=== PATIENT | male | born 1950 | race Two or more races ===

== ENCOUNTER 2016-11-23 23:15 | Inpatient (IN) | payer MEDICARE ==
[2016-11-23 23:43] VITALS: BP 133/74
[2016-11-24] MEDS: INSULIN ASPART SLIDING SCALE 100 UNITS/ML UNIT SUBQ SCH ×4 (06:30→20:38)
[2016-11-24] MEDS ORDERED: Non-Formulary Item 1 EA (Fluoxetine Hcl [Prozac] 40 MG) PO SCH (09:00)
[2016-11-24] MEDS ORDERED: Non-Formulary Item 1 EA (Apixaban [Eliquis] 5 MG) PO SCH (09:00)
[2016-11-24] MEDS: Docusate Sodium/Senna Tab PO SCH ×2 (09:23→18:00)
--- NOTE | 2016-11-24 20:02 | History and Physical ---
History of Present Illness - HPI Chief Complaint: Mental health disorder HPI: 66 yrs old male with underlying HTN admitted to [facility] for evaluation of underlying psych disorder by DR LANDON. I was consulted to evaluated patient's medical status. During my evaluation patient denied any complaints. I reviewed patient's transfer records for [facility] where patient was diagnosed with PE and started on anticoagulation. Leg doppler per records was negative CT ABD/ PELVIS was negative as well. Patient denied any prior personal or family history of blood clots Vital Signs: Last Vital Signs Temp 97.5 F 11/23/16 23:49 Pulse 73 11/24/16 14:11 Resp 19 11/24/16 14:11 BP 133/74 11/23/16 23:49 Pulse Ox 94 11/23/16 23:49 Past Medical History Cardiovascular: Report: HTN Pulmonary: Report: No Pertinent Hx ACCOUNTING PROFESSIONAL: Report: No Pertinent Hx Psych: Report: No Pertinent Hx, Other (Mental health disorder) Musculoskeletal: Report: No Pertinent Hx Rheumatologic: Report: No pertinent Hx Infectious Disease: Report: No Pertinent Hx Renal/: Report: No Pertinent Hx Endocrine: Report: No Pertinent Hx Family Medical History - Family Member Mother History Unknown: Yes Ethnicity: Unknown Living Status: Unknown Social History Smoke: No Alcohol: None Drugs: None Lives: With Family, Other - Medications Home Medications: Home Medication Medication Instructions Recorded Type Acetaminophen [Non-Aspirin Pain 650 mg PO Q8HR PRN 11/23/16 History Relief] Apixaban [Eliquis] 5 mg PO BID 11/23/16 History Docusate Sodium/Senna [Senna Plus 1 tab PO BID 11/23/16 History 50 mg-8.6 mg] Fluoxetine HCl [Prozac] 40 mg PO DAILY 11/23/16 History Insulin Aspart Sliding Scale See Protocol SUBQ ACHS 11/23/16 History [NovoLOG INSULIN SLIDING SCALE] Mirtazapine [Remeron] 15 mg PO HS 11/23/16 History OLANZapine [ZyPREXA] 5 mg PO HS 11/23/16 History - Allergies Allergies/Adverse Reactions: Allergies Allergy/AdvReac Type Severity Reaction Status Date / Time No Known Allergies Allergy Verified 11/23/16 23:43 Review of Systems - Review of Systems Constitutional: Report: No Significant. Denies: Fever, Chills Eyes: Denies: Vision Change ENT: Denies: Throat Pain Respiratory: Denies: Cough, Shortness of Breath Cardiovascular: Denies: Chest Pain, Palpitations Gastrointestinal: Denies: Nausea, Vomiting, Abdominal Pain, Constipation Genitourinary: Denies: Dysuria Musculoskeletal: Denies: Back Pain Skin: Denies: Rash Neurological: Denies: No Significant Physical Exam - Physical Exam Cardiovascular Systems: Report: Regular, Rate and Rhythm Respiratory: Report: Breath Sounds are within normal limits Abdomen: Report: Non-tender to palpation Back: Report: Inspection of back is within normal limits. Extremities: Report: Non-tender to palpation., No pedal edema was noted on inspection Skin: Report: Warm Neuro/Psych: Report: No new focal deficits - Lab Results All Lab Results last 24 hours: Laboratory Last Values POC Glucose 94 MG/DL (70 - 105) 11/24/16 16:39 Laboratory Results - last 24 hr 11/23/16 11/24/16 11/24/16 23:53 06:07 11:27 POC Glucose 118 H 91 97 11/24/16 16:39 POC Glucose 94 - Assessment Assessment: Pulmonary embolism HTN Mental health disorder - Plan Plan: Continue anticoagulation Hematology consult Monitor BP ( no HTN meds) Psych managment per Psychiatrist Plan of care discussed with nursing staff
[2016-11-24 22:31] LABS: % BASOPHILS 2.1 % (0.0-2.0); % EOSINOPHILS 1.2 % (0.0-5.0); % LYMPHOCYTES 28.3 % (20.0-50.0); % MONOCYTES 7.5 % (2.0-10.0); % NEUTROPHILS 60.9 % (40.0-80.0); HEMATOCRIT 46.4 % (39.0-49.0); HEMOGLOBIN 15.5 gm/dL (12.6-17.4); MEAN CELL VOLUME 90.8 fl (80-99); MEAN CORPUSCULAR HEMOGLOBIN 30.3 pg (27.0-31.0); MEAN CORPUSCULAR HGB CONC 33.4 pg (28.0-36.0); MEAN PLATELET VOLUME 7.9 fl; NEUTROPHILE ABSOLUTE 6.1 Th/cmm (1.8-8.0); PLATELET COUNT 287 Th/cmm (150-400); RED CELL DISTRIBUTION WIDTH 13.8 % (11.5-20.0); WHITE BLOOD COUNT 10.1 Th/cmm (4.8-10.8)
[2016-11-24 22:46] LABS: ANION GAP 9.1 (7.0-16.0); BUN - UREA NITROGEN 22 mg/dL (7-25); BUN/CREATININE RATIO 24.4; CALCIUM SERUM 9.5 mg/dL (8.6-10.3); CARBON DIOXIDE 23.4 mEq/L (21.0-31.0); CHLORIDE 102 mEq/L (98-107); CREATININE - SERUM 0.9 mg/dL (0.7-1.3); GLUCOSE 100 mg/dL (70-105); POTASSIUM SERUM 4.5 mEq/L (3.5-5.1); SODIUM SERUM 130 mEq/L (136-145)
[2016-11-25] MEDS: INSULIN ASPART SLIDING SCALE 100 UNITS/ML UNIT SUBQ SCH ×4 (06:45→21:18)
[2016-11-25] MEDS: Docusate Sodium/Senna Tab PO SCH ×2 (08:54→16:55)
--- NOTE | 2016-11-25 09:14 | Psych Progress Note ---
Anu Psych Progress Note - Intro Date of Progress Note: 11/25/16 - Assessment Assessment: Depressed. - Vitals, I&O Vitals: Vital Signs - 24 hr 11/24/16 11/24/16 11/25/16 14:11 20:00 05:20 Temp 98.5 F 98.5 F HR 86 85 HR [Radial] 73 RR 19 18 18 BP 110/53 98/63 O2 Sat % 95 93 I&O: Intake & Output 11/23/16 11/24/16 11/25/16 11/26/16 06:59 06:59 06:59 06:59 Weight (lbs) 85.275 kg - ROS Psychological ROS: Report: Anxiety, Behavioral Disorder, Depression, Sleep Disturbances, Suicidal Ideation Neurological: Report: Behavorial changes, Weakness - Objective Psych Behavior: Report: Alert, Cooperative Psych Speech: Report: Increased Latency of Resp, Soft Psych Mood: Report: Anxious, Depressed, Sad Psych Affect: Report: Anxious, Constricted, Depressed, Inappropriate Psych Thought Process: Report: [place] Psych Cognition: Report: Grossly Intact Psych Insight: Report: Impaired Psych Judgement: Report: Impaired - Plan Plan: Continue current meds and follow up with supportive tx. - Review of Relevant Data Review of Relevant Data: I have reviewed the following items and time gaston (where applicable) has been applied. Psych Data Reviewed: Meds (Able to tolerate meds.) - Medications Current Medications: Current Medications Acetaminophen (Tylenol) 650 mg PO Q8HR PRN PRN Reason: mild pain Stop: 01/23/17 00:13 Insulin Aspart (Novolog Insulin Sliding Scale) 0 units SUBQ ACHS JULISSA PRN Reason: Protocol Stop: 01/23/17 07:29 Last Admin: 11/25/16 06:45 Dose: Not Given Lorazepam (Ativan) 1 mg PO Q6H PRN; Protocol PRN Reason: Agitation Stop: 01/22/17 23:44 Last Admin: 11/24/16 16:49 Dose: 1 mg Mirtazapine (Remeron) 15 mg PO HS JULISSA PRN Reason: Protocol Stop: 01/23/17 20:59 Last Admin: 11/24/16 20:37 Dose: 15 mg Olanzapine (Zyprexa) 5 mg PO HS JULISSA PRN Reason: Protocol Stop: 01/23/17 20:59 Last Admin: 11/24/16 20:37 Dose: 5 mg Rivaroxaban (Xarelto) 20 mg PO QDPC [facility] Stop: 01/24/17 08:29 Last Admin: 11/25/16 08:54 Dose: 20 mg Sennosides (Senna Plus 50 Mg-8.6 Mg) 1 tab PO BID [facility] Stop: 01/23/17 08:59 Last Admin: 11/25/16 08:54 Dose: 1 tab Zolpidem Tartrate (Ambien) 5 mg PO HS PRN PRN Reason: Insomnia Stop: 01/22/17 23:44 Last Admin: 11/24/16 01:18 Dose: 5 mg
--- NOTE | 2016-11-25 12:18 | Consultation ---
Consult Note - Consult Note Service Date: 11/25/16 Referring Physician: Avinash Jamison Consult Note: PHYSICIAN Consultation Note: Date of Admission: 11/23/16 Purpose of Consultation: Pulmonary Embolism Chief Complaint: depression History of Present Illness: Patient TOLU LÓPEZ was admitted to [facility] with PSYCHOSIS. Past Medical History: Depression, HTN, PE Allergies Allergy/AdvReac Type Severity Reaction Status Date / Time No Known Allergies Allergy Verified 11/23/16 23:43 Vital Signs Temp 98.5 F 11/25/16 05:20 Pulse 85 11/25/16 05:20 Resp 18 11/25/16 05:20 BP 98/63 11/25/16 05:20 Pulse Ox 93 11/25/16 05:20 Laboratory Results - last 24 hr 11/24/16 11/24/16 11/24/16 16:39 20:01 22:24 WBC 10.1 RBC 5.10 Hgb 15.5 Hct 46.4 MCV 90.8 MCH 30.3 MCHC Differential 33.4 RDW 13.8 Plt Count 287 MPV 7.9 Neutrophils % 60.9 Lymphocytes % 28.3 Monocytes % 7.5 Eosinophils % 1.2 Basophils % 2.1 H Sodium Potassium Chloride Carbon Dioxide Anion Gap BUN Creatinine Est GFR ( Amer) Est GFR (Non-Af Amer) BUN/Creatinine Ratio Glucose POC Glucose 94 105 Calcium 11/24/16 11/25/16 22:24 05:59 WBC RBC Hgb Hct MCV MCH MCHC Differential RDW Plt Count MPV Neutrophils % Lymphocytes % Monocytes % Eosinophils % Basophils % Sodium 130 L Potassium 4.5 Chloride 102 Carbon Dioxide 23.4 Anion Gap 9.1 BUN 22 Creatinine 0.9 Est GFR ( Amer) > 60.0 Est GFR (Non-Af Amer) > 60.0 BUN/Creatinine Ratio 24.4 Glucose 100 POC Glucose 91 Calcium 9.5 Home Medication Medication Instructions Recorded Type Acetaminophen [Non-Aspirin Pain 650 mg PO Q8HR PRN 11/23/16 History Relief] Apixaban [Eliquis] 5 mg PO BID 11/23/16 History Docusate Sodium/Senna [Senna Plus 1 tab PO BID 11/23/16 History 50 mg-8.6 mg] Fluoxetine HCl [Prozac] 40 mg PO DAILY 11/23/16 History Insulin Aspart Sliding Scale See Protocol SUBQ ACHS 11/23/16 History [NovoLOG INSULIN SLIDING SCALE] Mirtazapine [Remeron] 15 mg PO HS 11/23/16 History OLANZapine [ZyPREXA] 5 mg PO HS 11/23/16 History Current Medications Generic Name Dose Route Start Last Admin Trade Name Freq PRN Reason Stop Dose Admin Acetaminophen 650 mg 11/24/16 00:14 Tylenol PO 01/23/17 00:13 Q8HR PRN mild pain Insulin Aspart 0 units 11/24/16 07:30 11/25/16 06:45 Novolog Insulin Sliding Scale SUBQ 01/23/17 07:29 Not Given ACHS JULISSA Protocol Lorazepam 1 mg 11/24/16 09:20 11/24/16 16:49 Ativan PO 01/22/17 23:44 1 mg Q6H PRN Administration Agitation Protocol Mirtazapine 15 mg 11/24/16 21:00 11/24/16 20:37 Remeron PO 01/23/17 20:59 15 mg HS JULISSA Administration Protocol Olanzapine 5 mg 11/24/16 21:00 11/24/16 20:37 Zyprexa PO 01/23/17 20:59 5 mg HS JULISSA Administration Protocol Rivaroxaban 20 mg 11/25/16 08:30 11/25/16 08:54 Xarelto PO 01/24/17 08:29 20 mg QDPC JULISSA Administration Sennosides 1 tab 11/24/16 09:00 11/25/16 08:54 Senna Plus 50 Mg-8.6 Mg PO 01/23/17 08:59 1 tab BID JULISSA Administration Zolpidem Tartrate 5 mg 11/23/16 23:45 11/24/16 01:18 Ambien PO 01/22/17 23:44 5 mg HS PRN Administration Insomnia Review of Systems: A 12 point ROS was reviewed with the pertinent positive and negatives noted in the HPI. Social History Smoking Status Never smoker Drug Use No Alcohol Use No Family Medical History Family Medical History Start: 11/23/16 23: 38 Freq: ONCE Status: Active Document 11/23/16 23:38 MILAGRO (Rec: 11/24/16 00:23 MILAGRO [id number]) Family Medical History Mother History Unknown Yes Ethnicity Unknown Living Status Unknown Physical Exam: General: Alert and Oriented x3, No Acute Distress HEENT: EOMI Bilaterally, PERRLA Bilaterally, Head is normocephalic, atraumatic on inspection. Cardio: +S1/S2 Auscultated, RRR, no murmurs/rubs/gallops noted Respiratory: Clear to Auscultate Bilaterally Abdominal: Soft, Nondistended, Nontender to palpation x 4 quadrants Genital/Urinary: Extremities: No Edema noted in the lower extremities Neurological: Cranial Nerves II-XII intact bilaterally, Gait Steady, No Focal Deficits noted. Assessment/Plan: * Pulmonary Embolism right lower lobe * HTN * Psychosis check D-dimer will eval for hypercoagulable state after 6 months Continue Xarelto x months Signed, Misael Varela [id number]
[2016-11-26] MEDS: INSULIN ASPART SLIDING SCALE 100 UNITS/ML UNIT SUBQ SCH ×4 (06:32→21:13)
[2016-11-26] MEDS: Docusate Sodium/Senna Tab PO SCH ×2 (09:57→16:10)
--- NOTE | 2016-11-26 10:58 | Psych Progress Note ---
Anu Psych Progress Note - Intro Date of Progress Note: 11/26/16 - Assessment Assessment: Depressed. - Vitals, I&O Vitals: Vital Signs - 24 hr 11/25/16 11/25/16 11/26/16 14:53 20:00 06:33 Temp 100.2 F 97.2 F HR 84 72 HR [Radial] 84 RR 20 20 20 BP 132/72 130/84 O2 Sat % 93 96 I&O: Intake & Output 11/24/16 11/25/16 11/26/16 11/27/16 06:59 06:59 06:59 06:59 Intake Total 1919 Balance 1919 Weight (lbs) 85.275 kg - ROS Psychological ROS: Report: Anxiety, Depression, Irritability, Memory difficulties, Sleep Disturbances, Suicidal Ideation Neurological: Report: Confusion, Gait Disturbance - Objective Psych General Appearance: Report: Roughly stated age, Disheveled Psych Behavior: Report: Alert, Cooperative Psych Speech: Report: Soft Psych Mood: Report: Anxious, Depressed Psych Affect: Report: Anxious, Constricted, Depressed Psych Thought Process: Report: Circumstantial Psych Cognition: Report: Memory generally intact Psych Insight: Report: Impaired Psych Judgement: Report: Impaired - Plan Plan: Continue current meds and follow up with supportive tx. - Review of Relevant Data Review of Relevant Data: I have reviewed the following items and time gaston (where applicable) has been applied. Psych Data Reviewed: Meds - Diagnosis Diagnosis: Herrera. depressive disorder rec severe. - Medications Current Medications: Current Medications Acetaminophen (Tylenol) 650 mg PO Q8HR PRN PRN Reason: mild pain Stop: 01/23/17 00:13 Insulin Aspart (Novolog Insulin Sliding Scale) 0 units SUBQ ACHS JULISSA PRN Reason: Protocol Stop: 01/23/17 07:29 Last Admin: 11/26/16 06:32 Dose: Not Given Lorazepam (Ativan) 1 mg PO Q6H PRN; Protocol PRN Reason: Agitation Stop: 01/22/17 23:44 Last Admin: 11/24/16 16:49 Dose: 1 mg Mirtazapine (Remeron) 15 mg PO HS JULISSA PRN Reason: Protocol Stop: 01/23/17 20:59 Last Admin: 11/25/16 21:18 Dose: 15 mg Olanzapine (Zyprexa) 5 mg PO HS JULISSA PRN Reason: Protocol Stop: 01/23/17 20:59 Last Admin: 11/25/16 21:18 Dose: 5 mg Rivaroxaban (Xarelto) 20 mg PO QDPC JULISSA Stop: 01/24/17 08:29 Last Admin: 11/26/16 09:57 Dose: Not Given Sennosides (Senna Plus 50 Mg-8.6 Mg) 1 tab PO BID JULISSA Stop: 01/23/17 08:59 Last Admin: 11/26/16 09:57 Dose: Not Given Zolpidem Tartrate (Ambien) 5 mg PO HS PRN PRN Reason: Insomnia Stop: 01/22/17 23:44 Last Admin: 11/25/16 23:41 Dose: 5 mg
--- NOTE | 2016-11-26 13:50 | General Progress Note ---
Subjective - Review of Systems Service Date: 11/26/16 Events since last encounter: none Objective - Results Result Diagrams: 11/24/16 22:24 11/24/16 22:24 Recent Labs: Laboratory Last Values WBC 10.1 Th/cmm (4.8-10.8) 11/24/16 22:24 RBC 5.10 Mil/cmm (3.80-5.80) 11/24/16 22:24 Hgb 15.5 gm/dL (12.6-17.4) 11/24/16 22:24 Hct 46.4 % (39.0-49.0) 11/24/16 22:24 MCV 90.8 fl (80-99) 11/24/16 22:24 MCH 30.3 pg (27.0-31.0) 11/24/16 22:24 MCHC Differential 33.4 pg (28.0-36.0) 11/24/16 22:24 RDW 13.8 % (11.5-20.0) 11/24/16 22:24 Plt Count 287 Th/cmm (150-400) 11/24/16 22:24 MPV 7.9 fl 11/24/16 22:24 Neutrophils % 60.9 % (40.0-80.0) 11/24/16 22:24 Lymphocytes % 28.3 % (20.0-50.0) 11/24/16 22:24 Monocytes % 7.5 % (2.0-10.0) 11/24/16 22:24 Eosinophils % 1.2 % (0.0-5.0) 11/24/16 22:24 Basophils % 2.1 % (0.0-2.0) H 11/24/16 22:24 Sodium 130 mEq/L (136-145) L 11/24/16 22:24 Potassium 4.5 mEq/L (3.5-5.1) 11/24/16 22:24 Chloride 102 mEq/L (98-107) 11/24/16 22:24 Carbon Dioxide 23.4 mEq/L (21.0-31.0) 11/24/16 22:24 Anion Gap 9.1 (7.0-16.0) 11/24/16 22:24 BUN 22 mg/dL (7-25) 11/24/16 22:24 Creatinine 0.9 mg/dL (0.7-1.3) 11/24/16 22:24 Est GFR ( Amer) > 60.0 ml/min (>90) 11/24/16 22:24 Est GFR (Non-Af Amer) > 60.0 ml/min 11/24/16 22:24 BUN/Creatinine Ratio 24.4 11/24/16 22:24 Glucose 100 mg/dL (70-105) 11/24/16 22:24 POC Glucose 101 MG/DL (70 - 105) 11/26/16 06:01 Calcium 9.5 mg/dL (8.6-10.3) 11/24/16 22:24 - Physical Exam Vitals and I&O: Vital Signs Temp 97.2 F 11/26/16 06:33 Pulse 72 11/26/16 06:33 Resp 20 11/26/16 06:33 BP 130/84 11/26/16 06:33 Pulse Ox 96 11/26/16 06:33 Intake & Output 11/25/16 11/26/16 11/26/16 18:59 06:59 18:59 Intake Total 1800 120 Balance 1800 120 Intake: Oral 1800 120 Other: # Voids 4 3 # Bowel Movements 1 Active Medications: Current Medications Acetaminophen (Tylenol) 650 mg PO Q8HR PRN PRN Reason: mild pain Stop: 01/23/17 00:13 Aripiprazole (Abilify) 2 mg PO DAILY [facility] PRN Reason: Protocol Stop: 01/26/17 08:59 Insulin Aspart (Novolog Insulin Sliding Scale) 0 units SUBQ ACHS [facility] PRN Reason: Protocol Stop: 01/23/17 07:29 Last Admin: 11/26/16 12:12 Dose: Not Given Lorazepam (Ativan) 1 mg PO Q6H PRN; Protocol PRN Reason: Agitation Stop: 01/22/17 23:44 Last Admin: 11/24/16 16:49 Dose: 1 mg Mirtazapine (Remeron) 15 mg PO [facility] PRN Reason: Protocol Stop: 01/23/17 20:59 Last Admin: 11/25/16 21:18 Dose: 15 mg [facility]: 01/24/17 08:29 Last Admin: 11/26/16 09:57 Dose: Not Given Sennosides (Senna Plus 50 Mg-8.6 Mg) 1 tab PO BID JULISSA Stop: 01/23/17 08:59 Last Admin: 11/26/16 09:57 Dose: Not Given Zolpidem Tartrate (Ambien) 5 mg PO HS PRN PRN Reason: Insomnia Stop: 01/22/17 23:44 Last Admin: 11/25/16 23:41 Dose: 5 mg Assessment/Plan - Assessment Assessment: * Pulmonary embolism * Depression Continue xarelto
[2016-11-27] MEDS: INSULIN ASPART SLIDING SCALE 100 UNITS/ML UNIT SUBQ SCH ×4 (06:31→20:41)
[2016-11-27] MEDS: Docusate Sodium/Senna Tab PO SCH ×2 (08:55→16:41)
--- NOTE | 2016-11-27 10:53 | Psych Progress Note ---
Anu Psych Progress Note - Intro Date of Progress Note: 11/27/16 - Assessment Assessment: Depressed. - Vitals, I&O Vitals: Vital Signs - 24 hr 11/26/16 11/26/16 11/27/16 14:00 15:03 06:35 Temp 98.4 F 97.8 F HR 77 71 HR [Radial] 72 RR 20 20 20 BP 115/66 124/78 O2 Sat % 96 98 I&O: Intake & Output 11/25/16 11/26/16 11/27/16 11/28/16 06:59 06:59 06:59 06:59 Intake Total 0 1720 Balance 1920 1720 - ROS Psychological ROS: Report: Anxiety, Depression, Sleep Disturbances, Suicidal Ideation Neurological: Report: No Significant - Objective Psych General Appearance: Report: No acute distress Psych Behavior: Report: Alert, Calm Psych Speech: Report: Normal in Rate and amount Psych Mood: Report: Anxious, Depressed, Irritable Psych Affect: Report: [place] content of speech, Anxious, Depressed Psych Thought Process: Report: Circumstantial Psych Cognition: Report: Confused, Unchanged from previous exam Psych Insight: Report: Impaired Psych Judgement: Report: Impaired - Plan Plan: Continue Abilify and add Prozac and follow up with supportive tx. - Review of Relevant Data Review of Relevant Data: I have reviewed the following items and time gaston (where applicable) has been applied. Psych Data Reviewed: Meds - Diagnosis Diagnosis: Herrera. depep. disorder. - Medications Current Medications: Current Medications Acetaminophen (Tylenol) 650 mg PO Q8HR PRN PRN Reason: mild pain Stop: 01/23/17 00:13 Aripiprazole (Abilify) 2 mg PO DAILY JULISSA PRN Reason: Protocol Stop: 01/26/17 08:59 Fluoxetine HCl (Prozac) 20 mg PO DAILY JULISSA PRN Reason: Protocol Stop: 01/27/17 08:59 Insulin Aspart (Novolog Insulin Sliding Scale) 0 units SUBQ ACHS JULISSA PRN Reason: Protocol Stop: 01/23/17 07:29 Last Admin: 11/27/16 06:31 Dose: Not Given Lorazepam (Ativan) 1 mg PO Q6H PRN; Protocol PRN Reason: Agitation Stop: 01/22/17 23:44 Last Admin: 11/26/16 21:12 Dose: 1 mg Mirtazapine (Remeron) 15 mg PO HS JULISSA PRN Reason: Protocol Stop: 01/23/17 20:59 Last Admin: 11/26/16 21:12 Dose: 15 mg Rivaroxaban (Xarelto) 20 mg PO QDPC JULISSA Stop: 01/24/17 08:29 Last Admin: 11/27/16 08:55 Dose: 20 mg Sennosides (Senna Plus 50 Mg-8.6 Mg) 1 tab PO BID JULISSA Stop: 01/23/17 08:59 Last Admin: 11/27/16 08:55 Dose: 1 tab Zolpidem Tartrate (Ambien) 5 mg PO HS PRN PRN Reason: Insomnia Stop: 01/22/17 23:44 Last Admin: 11/25/16 23:41 Dose: 5 mg
--- NOTE | 2016-11-27 12:16 | General Progress Note ---
Subjective - Review of Systems Service Date: 11/27/16 Subjective: more awake and responsive. Seems less depressed. No reports of bleeding Objective - Results Result Diagrams: 11/24/16 22:24 11/24/16 22:24 Recent Labs: Laboratory Last Values WBC 10.1 Th/cmm (4.8-10.8) 11/24/16 22:24 RBC 5.10 Mil/cmm (3.80-5.80) 11/24/16 22:24 Hgb 15.5 gm/dL (12.6-17.4) 11/24/16 22:24 Hct 46.4 % (39.0-49.0) 11/24/16 22:24 MCV 90.8 fl (80-99) 11/24/16 22:24 MCH 30.3 pg (27.0-31.0) 11/24/16 22:24 MCHC Differential 33.4 pg (28.0-36.0) 11/24/16 22:24 RDW 13.8 % (11.5-20.0) 11/24/16 22:24 Plt Count 287 Th/cmm (150-400) 11/24/16 22:24 MPV 7.9 fl 11/24/16 22:24 Neutrophils % 60.9 % (40.0-80.0) 11/24/16 22:24 Lymphocytes % 28.3 % (20.0-50.0) 11/24/16 22:24 Monocytes % 7.5 % (2.0-10.0) 11/24/16 22:24 Eosinophils % 1.2 % (0.0-5.0) 11/24/16 22:24 Basophils % 2.1 % (0.0-2.0) H 11/24/16 22:24 D-Dimer < 100 ng/mL (100-400) L 11/26/16 14:37 Sodium 130 mEq/L (136-145) L 11/24/16 22:24 Potassium 4.5 mEq/L (3.5-5.1) 11/24/16 22:24 Chloride 102 mEq/L (98-107) 11/24/16 22:24 Carbon Dioxide 23.4 mEq/L (21.0-31.0) 11/24/16 22:24 Anion Gap 9.1 (7.0-16.0) 11/24/16 22:24 BUN 22 mg/dL (7-25) 11/24/16 22:24 Creatinine 0.9 mg/dL (0.7-1.3) 11/24/16 22:24 Est GFR ( Amer) > 60.0 ml/min (>90) 11/24/16 22:24 Est GFR (Non-Af Amer) > 60.0 ml/min 11/24/16 22:24 BUN/Creatinine Ratio 24.4 11/24/16 22:24 Glucose 100 mg/dL (70-105) 11/24/16 22:24 POC Glucose 94 MG/DL (70 - 105) 11/27/16 12:03 Calcium 9.5 mg/dL (8.6-10.3) 11/24/16 22:24 - Physical Exam Vitals and I&O: Vital Signs Temp 97.8 F 11/27/16 06:35 Pulse 71 11/27/16 06:35 Resp 20 11/27/16 06:35 BP 124/78 11/27/16 06:35 Pulse Ox 98 11/27/16 06:35 Intake & Output 11/26/16 11/27/16 11/27/16 18:59 06:59 18:59 Intake Total 1600 120 Balance 1600 120 Intake: Oral 1600 120 Other: # Voids 4 3 # Bowel Movements 0 Active Medications: Current Medications Acetaminophen (Tylenol) 650 mg PO Q8HR PRN PRN Reason: mild pain Stop: 01/23/17 00:13 Aripiprazole (Abilify) 2 mg PO DAILY [facility] PRN Reason: Protocol Stop: 01/26/17 08:59 Fluoxetine HCl (Prozac) 20 mg PO DAILY J[facility]SA PRN Reason: Protocol Stop: 01/27/17 08:59 Insulin Aspart (Novolog Insulin Sliding Scale) 0 units SUBQ ACHS JULISSA PRN Reason: Protocol Stop: 01/23/17 07:29 Last Admin: 11/27/16 12:07 Dose: Not Given Lorazepam (Ativan) 1 mg PO Q6H PRN; Protocol PRN Reason: Agitation Stop: 01/22/17 23:44 Last Admin: 11/26/16 21:12 Dose: 1 mg Mirtazapine (Remeron) 15 mg PO HS JULISSA PRN Reason: Protocol Stop: 01/23/17 20:59 Last Admin: 11/26/16 21:12 Dose: 15 mg Rivaroxaban (Xarelto) 20 mg PO QDPC JULISSA Stop: 01/24/17 08:29 Last Admin: 11/27/16 08:55 Dose: 20 mg Sennosides (Senna Plus 50 Mg-8.6 Mg) 1 tab PO BID JULISSA Stop: 01/23/17 08:59 Last Admin: 11/27/16 08:55 Dose: 1 tab Zolpidem Tartrate (Ambien) 5 mg PO HS PRN PRN Reason: Insomnia Stop: 01/22/17 23:44 Last Admin: 11/25/16 23:41 Dose: 5 mg Assessment/Plan - Assessment Assessment: * Pulmonary embolism * Depression Continue xarelto same dose
--- NOTE | 2016-11-27 21:16 | General Progress Note ---
Subjective - Review of Systems Service Date: 11/27/16 Subjective: Patient seen and examined denied any complaints Objective - Results Result Diagrams: 11/24/16 22:24 11/24/16 22:24 Recent Labs: Laboratory Last Values WBC 10.1 Th/cmm (4.8-10.8) 11/24/16 22:24 RBC 5.10 Mil/cmm (3.80-5.80) 11/24/16 22:24 Hgb 15.5 gm/dL (12.6-17.4) 11/24/16 22:24 Hct 46.4 % (39.0-49.0) 11/24/16 22:24 MCV 90.8 fl (80-99) 11/24/16 22:24 MCH 30.3 pg (27.0-31.0) 11/24/16 22:24 MCHC Differential 33.4 pg (28.0-36.0) 11/24/16 22:24 RDW 13.8 % (11.5-20.0) 11/24/16 22:24 Plt Count 287 Th/cmm (150-400) 11/24/16 22:24 MPV 7.9 fl 11/24/16 22:24 Neutrophils % 60.9 % (40.0-80.0) 11/24/16 22:24 Lymphocytes % 28.3 % (20.0-50.0) 11/24/16 22:24 Monocytes % 7.5 % (2.0-10.0) 11/24/16 22:24 Eosinophils % 1.2 % (0.0-5.0) 11/24/16 22:24 Basophils % 2.1 % (0.0-2.0) H 11/24/16 22:24 D-Dimer < 100 ng/mL (100-400) L 11/26/16 14:37 Sodium 130 mEq/L (136-145) L 11/24/16 22:24 Potassium 4.5 mEq/L (3.5-5.1) 11/24/16 22:24 Chloride 102 mEq/L (98-107) 11/24/16 22:24 Carbon Dioxide 23.4 mEq/L (21.0-31.0) 11/24/16 22:24 Anion Gap 9.1 (7.0-16.0) 11/24/16 22:24 BUN 22 mg/dL (7-25) 11/24/16 22:24 Creatinine 0.9 mg/dL (0.7-1.3) 11/24/16 22:24 Est GFR ( Amer) > 60.0 ml/min (>90) 11/24/16 22:24 Est GFR (Non-Af Amer) > 60.0 ml/min 11/24/16 22:24 BUN/Creatinine Ratio 24.4 11/24/16 22:24 Glucose 100 mg/dL (70-105) 11/24/16 22:24 POC Glucose 106 MG/DL (70 - 105) H 11/27/16 20:17 Calcium 9.5 mg/dL (8.6-10.3) 11/24/16 22:24 - Physical Exam Vitals and I&O: Vital Signs Temp 98.1 F 11/27/16 19:53 Pulse 85 11/27/16 19:53 Resp 20 11/27/16 19:53 BP 119/80 11/27/16 19:53 Pulse Ox 92 11/27/16 19:53 Intake & Output 11/27/16 11/27/16 11/28/16 06:59 18:59 06:59 Intake Total 120 960 120 Balance 120 960 120 Intake: Oral 120 960 120 Other: # Voids 3 4 2 # Bowel Movements 0 0 Active Medications: Current Medications Acetaminophen (Tylenol) 650 mg PO Q8HR PRN PRN Reason: mild pain Stop: 01/23/17 00:13 Aripiprazole (Abilify) 2 mg PO DAILY JULISSA PRN Reason: Protocol Stop: 01/26/17 08:59 Fluoxetine HCl (Prozac) 20 mg PO DAILY JULISSA PRN Reason: Protocol Stop: 01/27/17 08:59 Insulin Aspart (Novolog Insulin Sliding Scale) 0 units SUBQ ACHS JULISSA PRN Reason: Protocol Stop: 01/23/17 07:29 Last Admin: 11/27/16 20:41 Dose: Not Given Lorazepam (Ativan) 1 mg PO Q6H PRN; Protocol PRN Reason: Agitation Stop: 01/22/17 23:44 Last Admin: 11/26/16 21:12 Dose: 1 mg Mirtazapine (Remeron) 15 mg PO HS JULISSA PRN Reason: Protocol Stop: 01/23/17 20:59 Last Admin: 11/27/16 20:41 Dose: 15 mg Rivaroxaban (Xarelto) 20 mg PO QDPC [facility] Stop: 01/24/17 08:29 Last Admin: 11/27/16 08:55 Dose: 20 mg Sennosides (Senna Plus 50 Mg-8.6 Mg) 1 tab PO BID JULISSA Stop: 01/23/17 08:59 Last Admin: 11/27/16 16:41 Dose: Not Given Zolpidem Tartrate (Ambien) 5 mg PO HS PRN PRN Reason: Insomnia Stop: 01/22/17 23:44 Last Admin: 11/25/16 23:41 Dose: 5 mg Cardiovascular: Regular rate Lungs: Clear to auscultation Assessment/Plan - Assessment Assessment: Pulmonary embolism HTN Mental health disorder - Plan Plan: Continue anticoagulation Monitor BP ( no HTN meds) Psych managment per Psychiatrist Plan of care discussed with nursing staff
[2016-11-28] MEDS: INSULIN ASPART SLIDING SCALE 100 UNITS/ML UNIT SUBQ SCH ×4 (06:47→21:15)
[2016-11-28] MEDS: Docusate Sodium/Senna Tab PO SCH ×2 (08:49→18:25)
--- NOTE | 2016-11-28 12:20 | Psych Progress Note ---
[facility] Psych Progress Note - Intro Date of Progress Note: 11/28/16 - Assessment Assessment: Depressed. - Vitals, I&O Vitals: Vital Signs - 24 hr 11/27/16 11/27/16 11/27/16 12:57 14:00 19:53 Temp 97.6 F 98.1 F HR 83 85 HR [Radial] 71 RR 20 19 20 BP 119/71 119/80 O2 Sat % 98 92 11/28/16 05:43 Temp 98.4 F HR 72 HR [Radial] RR 20 BP 112/73 O2 Sat % 96 I&O: Intake & Output 11/26/16 11/27/16 11/28/16 11/29/16 06:59 06:59 06:59 06:59 Intake Total 1920 1720 1200 Balance 1920 1720 1200 Weight (lbs) 87.861 kg - ROS Psychological ROS: Report: Anxiety, Depression, Sleep Disturbances, Suicidal Ideation Neurological: Report: No Significant - Objective Psych General Appearance: Report: No acute distress Psych Behavior: Report: Alert, Calm Psych Speech: Report: Normal in Rate and amount Psych Mood: Report: Anxious, Depressed, Irritable Psych Affect: Report: Approp. content of speech, Anxious, Depressed Psych Thought Process: Report: Circumstantial Psych Cognition: Report: Confused, Unchanged from previous exam Psych Insight: Report: Impaired Psych Judgement: Report: Impaired - Plan Plan: Continue Abilify and add Prozac and follow up with supportive tx. - Review of Relevant Data Review of Relevant Data: I have reviewed the following items and time gaston (where applicable) has been applied. Psych Data Reviewed: Meds - Diagnosis Diagnosis: callieJoseph dep renny with psy sx. - Medications Current Medications: Current Medications Acetaminophen (Tylenol) 650 mg PO Q8HR PRN PRN Reason: mild pain Stop: 01/23/17 00:13 Aripiprazole (Abilify) 2 mg PO DAILY JULISSA PRN Reason: Protocol Stop: 01/26/17 08:59 Last Admin: 11/28/16 08:51 Dose: 2 mg Fluoxetine HCl (Prozac) 20 mg PO DAILY JULISSA PRN Reason: Protocol Stop: 01/27/17 08:59 Last Admin: 11/28/16 08:50 Dose: 20 mg Insulin Aspart (Novolog Insulin Sliding Scale) 0 units SUBQ ACHS JULISSA PRN Reason: Protocol Stop: 01/23/17 07:29 Last Admin: 11/28/16 06:47 Dose: Not Given Lorazepam (Ativan) 1 mg PO Q6H PRN; Protocol PRN Reason: Agitation Stop: 01/22/17 23:44 Last Admin: 11/26/16 21:12 Dose: 1 mg Mirtazapine (Remeron) 15 mg PO HS JULISSA PRN Reason: Protocol Stop: 01/23/17 20:59 Last Admin: 11/27/16 20:41 Dose: 15 mg Rivaroxaban (Xarelto) 20 mg PO QDPC JULISSA Stop: 01/24/17 08:29 Last Admin: 11/28/16 08:49 Dose: 20 mg Sennosides (Senna Plus 50 Mg-8.6 Mg) 1 tab PO BID JULISSA Stop: 01/23/17 08:59 Last Admin: 11/28/16 08:49 Dose: 1 tab Zolpidem Tartrate (Ambien) 5 mg PO HS PRN PRN Reason: Insomnia Stop: 01/22/17 23:44 Last Admin: 11/27/16 23:23 Dose: 5 mg
--- NOTE | 2016-11-28 12:45 | General Progress Note ---
Subjective - Review of Systems Service Date: 11/28/16 Subjective: more awake and responsive.. No reports of bleeding Objective - Results Result Diagrams: 11/24/16 22:24 11/24/16 22:24 Recent Labs: Laboratory Last Values WBC 10.1 Th/cmm (4.8-10.8) 11/24/16 22:24 RBC 5.10 Mil/cmm (3.80-5.80) 11/24/16 22:24 Hgb 15.5 gm/dL (12.6-17.4) 11/24/16 22:24 Hct 46.4 % (39.0-49.0) 11/24/16 22:24 MCV 90.8 fl (80-99) 11/24/16 22:24 MCH 30.3 pg (27.0-31.0) 11/24/16 22:24 MCHC Differential 33.4 pg (28.0-36.0) 11/24/16 22:24 RDW 13.8 % (11.5-20.0) 11/24/16 22:24 Plt Count 287 Th/cmm (150-400) 11/24/16 22:24 MPV 7.9 fl 11/24/16 22:24 Neutrophils % 60.9 % (40.0-80.0) 11/24/16 22:24 Lymphocytes % 28.3 % (20.0-50.0) 11/24/16 22:24 Monocytes % 7.5 % (2.0-10.0) 11/24/16 22:24 Eosinophils % 1.2 % (0.0-5.0) 11/24/16 22:24 Basophils % 2.1 % (0.0-2.0) H 11/24/16 22:24 D-Dimer < 100 ng/mL (100-400) L 11/26/16 14:37 Sodium 130 mEq/L (136-145) L 11/24/16 22:24 Potassium 4.5 mEq/L (3.5-5.1) 11/24/16 22:24 Chloride 102 mEq/L (98-107) 11/24/16 22:24 Carbon Dioxide 23.4 mEq/L (21.0-31.0) 11/24/16 22:24 Anion Gap 9.1 (7.0-16.0) 11/24/16 22:24 BUN 22 mg/dL (7-25) 11/24/16 22:24 Creatinine 0.9 mg/dL (0.7-1.3) 11/24/16 22:24 Est GFR ( Amer) > 60.0 ml/min (>90) 11/24/16 22:24 Est GFR (Non-Af Amer) > 60.0 ml/min 11/24/16 22:24 BUN/Creatinine Ratio 24.4 11/24/16 22:24 Glucose 100 mg/dL (70-105) 11/24/16 22:24 POC Glucose 97 MG/DL (70 - 105) 11/28/16 06:23 Calcium 9.5 mg/dL (8.6-10.3) 11/24/16 22:24 - Physical Exam Vitals and I&O: Vital Signs Temp 98.4 F 11/28/16 05:43 Pulse 72 11/28/16 05:43 Resp 20 11/28/16 05:43 BP 112/73 11/28/16 05:43 Pulse Ox 96 11/28/16 05:43 Intake & Output 11/27/16 11/28/16 11/28/16 18:59 06:59 18:59 Intake Total 960 240 Balance 960 240 Weight (lbs) 87.861 kg Intake: Oral 960 240 Other: # Voids 4 1 # Bowel Movements 0 0 Active Medications: Current Medications Acetaminophen (Tylenol) 650 mg PO Q8HR PRN PRN Reason: mild pain Stop: 01/23/17 00:13 Aripiprazole (Abilify) 2 mg PO DAILY JULISSA PRN Reason: Protocol Stop: 01/26/17 08:59 Last Admin: 11/28/16 08:51 Dose: 2 mg Fluoxetine HCl (Prozac) 20 mg PO DAILY JULISSA PRN Reason: Protocol Stop: 01/27/17 08:59 Last Admin: 11/28/16 08:50 Dose: 20 mg Insulin Aspart (Novolog Insulin Sliding Scale) 0 units SUBQ ACHS JULISSA PRN Reason: Protocol Stop: 01/23/17 07:29 Last Admin: 11/28/16 06:47 Dose: Not Given Lorazepam (Ativan) 1 mg PO Q6H PRN; Protocol PRN Reason: Agitation Stop: 01/22/17 23:44 Last Admin: 11/26/16 21:12 Dose: 1 mg Mirtazapine (Remeron) 15 mg PO HS JULISSA PRN Reason: Protocol Stop: 01/23/17 20:59 Last Admin: 11/27/16 20:41 Dose: 15 mg Rivaroxaban (Xarelto) 20 mg PO QDPC JULISSA Stop: 01/24/17 08:29 Last Admin: 11/28/16 08:49 Dose: 20 mg Sennosides (Senna Plus 50 Mg-8.6 Mg) 1 tab PO BID JULISSA Stop: 01/23/17 08:59 Last Admin: 11/28/16 08:49 Dose: 1 tab Zolpidem Tartrate (Ambien) 5 mg PO HS PRN PRN Reason: Insomnia Stop: 01/22/17 23:44 Last Admin: 11/27/16 23:23 Dose: 5 mg Cardiovascular: Regular rate Lungs: Clear to auscultation Assessment/Plan - Assessment Assessment: * Pulmonary embolism * Depression Continue xarelto same dose Nutritional Asmnt/Malnutr-PDOC - Dietary Evaluation Malnutrition Findings (Please click <Entered> for more info): Nutritional Asmnt/Malnutrition Start: 11/28/16 09: 29 Text: Status: Complete Freq: Document 11/28/16 09:29 GSAMY (Rec: 11/28/16 09:48 [email or web address]) Nutritional Asmnt/Malnutrition Patient General Information Nutritional Screening Moderate Risk Screening Diagnosis Pulmonary embolism, HTN, mental health disorder Pertinent Medical Hx/Surgical Hx HTN, mental health disorder Subjective Information 66 year old male. Pt was resting in bed, appeared guarded, asked RD to leave after several questions, limited interview due to this. Pt denied allergies, chewing/ swallowing difficulties, any nutritional questions at this time. No wasting noted. Avg PO intake 75-100% since adm, meeting nutritional needs. Current Diet Order/ Nutrition Support Regular, Boost BID Pertinent Medications Novolog, Remeron, Senna Plus Pertinent Labs Reviewed. POC glucose 86-118 since adm Nutritional Hx/Data Height 1.73 m Height (Calculated Centimeters) 172.7 Current Weight (lbs) 87.861 kg Weight (Calculated Kilograms) 87.9 Weight (Calculated Grams) 79197.8 [place] Body Weight 154 Weight Status Overweight GI Symptoms Skin Integrity/Comment: Mukul Glez. Skin intact. Current %PO Good (75-100%) Estimated Nutritional Goals Calories/Kcals/Kg IBW 154lb/70kg Kcals Calculated 1750-2100kcal (25-30kcal/kg) Protein Calculated 70g (1g/kg) Fluid: ml 1750-2100ml (1ml/kcal) Nutritional Problem 1. Problem Problem No nutritional problem at this time. Intervention/Recommendation Comments 1. Continue with current diet order. Avg PO intake is adequate. 2. Remove Boost BID, pt with good appetite, meeting nutritional needs on meals. Expected Outcomes/Goals Expected Outcomes/Goals 1. PO intake continue to meet at least 75% of estimated nutritional needs.
[2016-11-29] MEDS: INSULIN ASPART SLIDING SCALE 100 UNITS/ML UNIT SUBQ SCH ×4 (06:37→21:15)
[2016-11-29] MEDS: Docusate Sodium/Senna Tab PO SCH ×2 (08:11→16:45)
--- NOTE | 2016-11-29 09:38 | Psych Progress Note ---
[facility] Psych Progress Note - Intro Date of Progress Note: 11/29/16 - Assessment Assessment: Depressed. - Vitals, I&O Vitals: Vital Signs - 24 hr 11/28/16 11/28/16 11/29/16 14:00 21:11 07:08 Temp 98.3 F 97.6 F 98.6 F HR 65 73 71 RR 18 19 97 BP 104/52 114/70 135/71 O2 Sat % 96 98 18 I&O: Intake & Output 11/27/16 11/28/16 11/29/16 11/30/16 06:59 06:59 06:59 06:59 Intake Total 1720 1200 1200 Balance 1720 1200 1200 Weight (lbs) 87.861 kg - ROS Psychological ROS: Report: Anxiety, Depression, Sleep Disturbances, Suicidal Ideation Neurological: Report: No Significant, Confusion, Dizziness - Objective Psych General Appearance: Report: Disheveled Psych Behavior: Report: Alert, Calm, Agitated Psych Speech: Report: Normal in Rate and amount Psych Mood: Report: Anxious, Depressed, Irritable Psych Affect: Report: Approp. content of speech, Anxious, Depressed Psych Thought Process: Report: Circumstantial Psych Cognition: Report: Confused, Unchanged from previous exam Psych Insight: Report: Impaired Psych Judgement: Report: Impaired - Plan Plan: Continue Abilify and add Prozac and follow up with supportive tx.patient is awaiting placement. - Review of Relevant Data Review of Relevant Data: I have reviewed the following items and time gaston (where applicable) has been applied. Psych Data Reviewed: Meds - Medications Current Medications: Current Medications Acetaminophen (Tylenol) 650 mg PO Q8HR PRN PRN Reason: mild pain Stop: 01/23/17 00:13 Last Admin: 11/28/16 20:59 Dose: 650 mg Aripiprazole (Abilify) 2 mg PO DAILY JULISSA PRN Reason: Protocol Stop: 01/26/17 08:59 Last Admin: 11/29/16 08:15 Dose: 2 mg Fluoxetine HCl (Prozac) 20 mg PO DAILY JULISSA PRN Reason: Protocol Stop: 01/27/17 08:59 Last Admin: 11/29/16 08:14 Dose: 20 mg Insulin Aspart (Novolog Insulin Sliding Scale) 0 units SUBQ ACHS JULISSA PRN Reason: Protocol Stop: 01/23/17 07:29 Last Admin: 11/29/16 06:37 Dose: Not Given Lorazepam (Ativan) 1 mg PO Q6H PRN; Protocol PRN Reason: Agitation Stop: 01/22/17 23:44 Last Admin: 11/28/16 21:00 Dose: 1 mg Mirtazapine (Remeron) 15 mg PO HS JULISSA PRN Reason: Protocol Stop: 01/23/17 20:59 Last Admin: 11/28/16 20:59 Dose: 15 mg Rivaroxaban (Xarelto) 20 mg PO QDPC [facility] Stop: 01/24/17 08:29 Last Admin: 11/29/16 08:14 Dose: 20 mg Sennosides (Senna Plus 50 Mg-8.6 Mg) 1 tab PO BID JULISSA Stop: 01/23/17 08:59 Last Admin: 11/29/16 08:11 Dose: 1 tab Zolpidem Tartrate (Ambien) 5 mg PO HS PRN PRN Reason: Insomnia Stop: 01/22/17 23:44 Last Admin: 11/27/16 23:23 Dose: 5 mg
--- NOTE | 2016-11-29 14:38 | General Progress Note ---
Subjective - Review of Systems Service Date: 11/29/16 Subjective: .. No reports of bleeding Objective - Results Result Diagrams: 11/24/16 22:24 11/24/16 22:24 Recent Labs: Laboratory Last Values WBC 10.1 Th/cmm (4.8-10.8) 11/24/16 22:24 RBC 5.10 Mil/cmm (3.80-5.80) 11/24/16 22:24 Hgb 15.5 gm/dL (12.6-17.4) 11/24/16 22:24 Hct 46.4 % (39.0-49.0) 11/24/16 22:24 MCV 90.8 fl (80-99) 11/24/16 22:24 MCH 30.3 pg (27.0-31.0) 11/24/16 22:24 MCHC Differential 33.4 pg (28.0-36.0) 11/24/16 22:24 RDW 13.8 % (11.5-20.0) 11/24/16 22:24 Plt Count 287 Th/cmm (150-400) 11/24/16 22:24 MPV 7.9 fl 11/24/16 22:24 Neutrophils % 60.9 % (40.0-80.0) 11/24/16 22:24 Lymphocytes % 28.3 % (20.0-50.0) 11/24/16 22:24 Monocytes % 7.5 % (2.0-10.0) 11/24/16 22:24 Eosinophils % 1.2 % (0.0-5.0) 11/24/16 22:24 Basophils % 2.1 % (0.0-2.0) H 11/24/16 22:24 D-Dimer < 100 ng/mL (100-400) L 11/26/16 14:37 Sodium 130 mEq/L (136-145) L 11/24/16 22:24 Potassium 4.5 mEq/L (3.5-5.1) 11/24/16 22:24 Chloride 102 mEq/L (98-107) 11/24/16 22:24 Carbon Dioxide 23.4 mEq/L (21.0-31.0) 11/24/16 22:24 Anion Gap 9.1 (7.0-16.0) 11/24/16 22:24 BUN 22 mg/dL (7-25) 11/24/16 22:24 Creatinine 0.9 mg/dL (0.7-1.3) 11/24/16 22:24 Est GFR ( Amer) > 60.0 ml/min (>90) 11/24/16 22:24 Est GFR (Non-Af Amer) > 60.0 ml/min 11/24/16 22:24 BUN/Creatinine Ratio 24.4 11/24/16 22:24 Glucose 100 mg/dL (70-105) 11/24/16 22:24 POC Glucose 85 MG/DL (70 - 105) 11/29/16 06:24 Calcium 9.5 mg/dL (8.6-10.3) 11/24/16 22:24 - Physical Exam Vitals and I&O: Vital Signs Temp 98.6 F 11/29/16 07:08 Pulse 71 11/29/16 07:08 Resp 97 11/29/16 07:08 BP 135/71 11/29/16 07:08 Pulse Ox 18 11/29/16 07:08 Intake & Output 11/28/16 11/29/16 11/29/16 18:59 06:59 18:59 Intake Total 1200 Balance 1200 Weight (lbs) 87.861 kg Intake: Oral 1200 Other: # Voids 3 2 # Bowel Movements 1 Active Medications: Current Medications Acetaminophen (Tylenol) 650 mg PO Q8HR PRN PRN Reason: mild pain Stop: 01/23/17 00:13 Last Admin: 11/28/16 20:59 Dose: 650 mg Aripiprazole (Abilify) 2 mg PO DAILY JULISSA PRN Reason: Protocol Stop: 01/26/17 08:59 Last Admin: 11/29/16 08:15 Dose: 2 mg Fluoxetine HCl (Prozac) 20 mg PO DAILY JULISSA PRN Reason: Protocol Stop: 01/27/17 08:59 Last Admin: 11/29/16 08:14 Dose: 20 mg Insulin Aspart (Novolog Insulin Sliding Scale) 0 units SUBQ ACHS JULISSA PRN Reason: Protocol Stop: 01/23/17 07:29 Last Admin: 11/29/16 12:20 Dose: Not Given Lorazepam (Ativan) 1 mg PO Q6H PRN; Protocol PRN Reason: Agitation Stop: 01/22/17 23:44 Last Admin: 11/28/16 21:00 Dose: 1 mg Mirtazapine (Remeron) 15 mg PO HS JULISSA PRN Reason: Protocol Stop: 01/23/17 20:59 Last Admin: 11/28/16 20:59 Dose: 15 mg Rivaroxaban (Xarelto) 20 mg PO QDPC JULISSA Stop: 01/24/17 08:29 Last Admin: 11/29/16 08:14 Dose: 20 mg Sennosides (Senna Plus 50 Mg-8.6 Mg) 1 tab PO BID JULISSA Stop: 01/23/17 08:59 Last Admin: 11/29/16 08:11 Dose: 1 tab Zolpidem Tartrate (Ambien) 5 mg PO HS PRN PRN Reason: Insomnia Stop: 01/22/17 23:44 Last Admin: 11/27/16 23:23 Dose: 5 mg Cardiovascular: Regular rate Lungs: Clear to auscultation Assessment/Plan - Assessment Assessment: * Pulmonary embolism * Depression Continue xarelto same dose Nutritional Asmnt/Malnutr-PDOC - Dietary Evaluation Malnutrition Findings (Please click <Entered> for more info): Nutritional Asmnt/Malnutrition Start: 11/28/16 09: 29 Text: Status: Complete Freq: Document 11/28/16 09:29 GSAMY (Rec: 11/28/16 09:48 [email or web address]) Nutritional Asmnt/Malnutrition Patient General Information Nutritional Screening Moderate Risk Screening Diagnosis Pulmonary embolism, HTN, mental health disorder Pertinent Medical Hx/Surgical Hx HTN, mental health disorder Subjective Information 66 year old male. Pt was resting in bed, appeared guarded, asked RD to leave after several questions, limited interview due to this. Pt denied allergies, chewing/ swallowing difficulties, any nutritional questions at this time. No wasting noted. Avg PO intake 75-100% since adm, meeting nutritional needs. Current Diet Order/ Nutrition Support Regular, Boost BID Pertinent Medications Novolog, Remeron, Senna Plus Pertinent Labs Reviewed. POC glucose 86-118 since adm Nutritional Hx/Data Height 1.73 m Height (Calculated Centimeters) 172.7 Current Weight (lbs) 87.861 kg Weight (Calculated Kilograms) 87.9 Weight (Calculated Grams) 42971.8 [place] Body Weight 154 Weight Status Overweight GI Symptoms Skin Integrity/Comment: Mukul 20. Skin intact. Current %PO Good (75-100%) Estimated Nutritional Goals Calories/Kcals/Kg IBW 154lb/70kg Kcals Calculated 1750-2100kcal (25-30kcal/kg) Protein Calculated 70g (1g/kg) Fluid: ml 1750-2100ml (1ml/kcal) Nutritional Problem 1. Problem Problem No nutritional problem at this time. Intervention/Recommendation Comments 1. Continue with current diet order. Avg PO intake is adequate. 2. Remove Boost BID, pt with good appetite, meeting nutritional needs on meals. Expected Outcomes/Goals Expected Outcomes/Goals 1. PO intake continue to meet at least 75% of estimated nutritional needs.
[2016-11-30] MEDS: INSULIN ASPART SLIDING SCALE 100 UNITS/ML UNIT SUBQ SCH ×4 (06:30→21:06)
[2016-11-30] MEDS: Docusate Sodium/Senna Tab PO SCH ×2 (09:16→16:45)
--- NOTE | 2016-11-30 12:51 | Psych Progress Note ---
[facility] Psych Progress Note - Intro Date of Progress Note: 11/30/16 - Assessment Assessment: Depressed. and isolative. - Vitals, I&O Vitals: Vital Signs - 24 hr 11/29/16 11/30/16 16:01 07:05 Temp 98.2 F 97.4 F HR 64 59 RR 20 18 BP 145/85 132/80 O2 Sat % 96 97 I&O: Intake & Output 11/28/16 11/29/16 11/30/16 12/01/16 06:59 06:59 06:59 06:59 Intake Total 1200 1200 800 Balance 1200 1200 800 Weight (lbs) 87.861 kg - ROS Psychological ROS: Report: Anxiety, Depression, Sleep Disturbances, Suicidal Ideation Neurological: Report: No Significant, Confusion, Dizziness - Objective Psych General Appearance: Report: No acute distress, Disheveled Psych Behavior: Report: Alert, Calm, Agitated Psych Speech: Report: Normal in Rate and amount, Soft Psych Mood: Report: Anxious, Depressed, Irritable Psych Affect: Report: Approp. content of speech, Anxious, DEPRESSED Psych Thought Process: Report: Paranoid Psych Cognition: Report: Confused, Unchanged from previous exam Psych Insight: Report: Impaired Psych Judgement: Report: Impaired - Plan Plan: Continue Abilify and add Prozac and follow up with supportive tx.patient is awaiting placement. - Review of Relevant Data Review of Relevant Data: I have reviewed the following items and time gaston (where applicable) has been applied. Psych Data Reviewed: Meds - Medications Current Medications: Current Medications Acetaminophen (Tylenol) 650 mg PO Q8HR PRN PRN Reason: mild pain Stop: 01/23/17 00:13 Last Admin: 11/28/16 20:59 Dose: 650 mg Aripiprazole (Abilify) 2 mg PO DAILY JULISSA PRN Reason: Protocol Stop: 01/26/17 08:59 Last Admin: 11/30/16 09:16 Dose: 2 mg Fluoxetine HCl (Prozac) 20 mg PO DAILY JULISSA PRN Reason: Protocol Stop: 01/27/17 08:59 Last Admin: 11/30/16 09:16 Dose: 20 mg Insulin Aspart (Novolog Insulin Sliding Scale) 0 units SUBQ ACHS JULISSA PRN Reason: Protocol Stop: 01/23/17 07:29 Last Admin: 11/30/16 11:41 Dose: Not Given Lorazepam (Ativan) 1 mg PO Q6H PRN; Protocol PRN Reason: Agitation Stop: 01/22/17 23:44 Last Admin: 11/28/16 21:00 Dose: 1 mg Mirtazapine (Remeron) 15 mg PO HS JULISSA PRN Reason: Protocol Stop: 01/23/17 20:59 Last Admin: 11/29/16 20:56 Dose: 15 mg Rivaroxaban (Xarelto) 20 mg PO QDPC JULISSA Stop: 01/24/17 08:29 Last Admin: 11/30/16 09:16 Dose: 20 mg Sennosides (Senna Plus 50 Mg-8.6 Mg) 1 tab PO BID JULISSA Stop: 01/23/17 08:59 Last Admin: 11/30/16 09:16 Dose: 1 tab Zolpidem Tartrate (Ambien) 5 mg PO HS PRN PRN Reason: Insomnia Stop: 01/22/17 23:44 Last Admin: 11/29/16 20:56 Dose: 5 mg
--- NOTE | 2016-11-30 14:49 | General Progress Note ---
Subjective - Review of Systems Service Date: 11/30/16 Subjective: .. No reports of bleeding Objective - Results Result Diagrams: 11/24/16 22:24 11/24/16 22:24 Recent Labs: Laboratory Last Values WBC 10.1 Th/cmm (4.8-10.8) 11/24/16 22:24 RBC 5.10 Mil/cmm (3.80-5.80) 11/24/16 22:24 Hgb 15.5 gm/dL (12.6-17.4) 11/24/16 22:24 Hct 46.4 % (39.0-49.0) 11/24/16 22:24 MCV 90.8 fl (80-99) 11/24/16 22:24 MCH 30.3 pg (27.0-31.0) 11/24/16 22:24 MCHC Differential 33.4 pg (28.0-36.0) 11/24/16 22:24 RDW 13.8 % (11.5-20.0) 11/24/16 22:24 Plt Count 287 Th/cmm (150-400) 11/24/16 22:24 MPV 7.9 fl 11/24/16 22:24 Neutrophils % 60.9 % (40.0-80.0) 11/24/16 22:24 Lymphocytes % 28.3 % (20.0-50.0) 11/24/16 22:24 Monocytes % 7.5 % (2.0-10.0) 11/24/16 22:24 Eosinophils % 1.2 % (0.0-5.0) 11/24/16 22:24 Basophils % 2.1 % (0.0-2.0) H 11/24/16 22:24 D-Dimer < 100 ng/mL (100-400) L 11/26/16 14:37 Sodium 130 mEq/L (136-145) L 11/24/16 22:24 Potassium 4.5 mEq/L (3.5-5.1) 11/24/16 22:24 Chloride 102 mEq/L (98-107) 11/24/16 22:24 Carbon Dioxide 23.4 mEq/L (21.0-31.0) 11/24/16 22:24 Anion Gap 9.1 (7.0-16.0) 11/24/16 22:24 BUN 22 mg/dL (7-25) 11/24/16 22:24 Creatinine 0.9 mg/dL (0.7-1.3) 11/24/16 22:24 Est GFR ( Amer) > 60.0 ml/min (>90) 11/24/16 22:24 Est GFR (Non-Af Amer) > 60.0 ml/min 11/24/16 22:24 BUN/Creatinine Ratio 24.4 11/24/16 22:24 Glucose 100 mg/dL (70-105) 11/24/16 22:24 POC Glucose 87 MG/DL (70 - 105) 11/30/16 11:35 Calcium 9.5 mg/dL (8.6-10.3) 11/24/16 22:24 - Physical Exam Vitals and I&O: Vital Signs Temp 97.4 F 11/30/16 07:05 Pulse 59 11/30/16 07:05 Resp 18 11/30/16 07:05 BP 132/80 11/30/16 07:05 Pulse Ox 97 11/30/16 07:05 Intake & Output 11/29/16 11/30/16 11/30/16 18:59 06:59 18:59 Intake Total 800 Balance 800 Intake: Oral 800 Other: # Voids 4 2 # Bowel Movements 1 Active Medications: Current Medications Acetaminophen (Tylenol) 650 mg PO Q8HR PRN PRN Reason: mild pain Stop: 01/23/17 00:13 Last Admin: 11/28/16 20:59 Dose: 650 mg Aripiprazole (Abilify) 2 mg PO DAILY JULISSA PRN Reason: Protocol Stop: 01/26/17 08:59 Last Admin: 11/30/16 09:16 Dose: 2 mg Fluoxetine HCl (Prozac) 20 mg PO DAILY JULISSA PRN Reason: Protocol Stop: 01/27/17 08:59 Last Admin: 11/30/16 09:16 Dose: 20 mg Insulin Aspart (Novolog Insulin Sliding Scale) 0 units SUBQ ACHS JULISSA PRN Reason: Protocol Stop: 01/23/17 07:29 Last Admin: 11/30/16 11:41 Dose: Not Given Lorazepam (Ativan) 1 mg PO Q6H PRN; Protocol PRN Reason: Agitation Stop: 01/22/17 23:44 Last Admin: 11/28/16 21:00 Dose: 1 mg Mirtazapine (Remeron) 15 mg PO HS JULISSA PRN Reason: Protocol Stop: 01/23/17 20:59 Last Admin: 11/29/16 20:56 Dose: 15 mg Rivaroxaban (Xarelto) 20 mg PO QDPC JULISSA Stop: 01/24/17 08:29 Last Admin: 11/30/16 09:16 Dose: 20 mg Sennosides (Senna Plus 50 Mg-8.6 Mg) 1 tab PO BID JULISSA Stop: 01/23/17 08:59 Last Admin: 11/30/16 09:16 Dose: 1 tab Zolpidem Tartrate (Ambien) 5 mg PO HS PRN PRN Reason: Insomnia Stop: 01/22/17 23:44 Last Admin: 11/29/16 20:56 Dose: 5 mg Cardiovascular: Regular rate Lungs: Clear to auscultation Assessment/Plan - Assessment Assessment: * Pulmonary embolism * Depression Continue xarelto same dose Nutritional Asmnt/Malnutr-PDOC - Dietary Evaluation Malnutrition Findings (Please click <Entered> for more info): Nutritional Asmnt/Malnutrition Start: 11/28/16 09: 29 Text: Status: Complete Freq: Document 11/28/16 09:29 GSAMY (Rec: 11/28/16 09:48 [email or web address]) Nutritional Asmnt/Malnutrition Patient General Information Nutritional Screening Moderate Risk Screening Diagnosis Pulmonary embolism, HTN, mental health disorder Pertinent Medical Hx/Surgical Hx HTN, mental health disorder Subjective Information 66 year old male. Pt was resting in bed, appeared guarded, asked RD to leave after several questions, limited interview due to this. Pt denied allergies, chewing/ swallowing difficulties, any nutritional questions at this time. No wasting noted. Avg PO intake 75-100% since adm, meeting nutritional needs. Current Diet Order/ Nutrition Support Regular, Boost BID Pertinent Medications Novolog, Remeron, Senna Plus Pertinent Labs Reviewed. POC glucose 86-118 since adm Nutritional Hx/Data Height 1.73 m Height (Calculated Centimeters) 172.7 Current Weight (lbs) 87.861 kg Weight (Calculated Kilograms) 87.9 Weight (Calculated Grams) 59907.8 [place] Body Weight 154 Weight Status Overweight GI Symptoms Skin Integrity/Comment: Mukul 20. Skin intact. Current %PO Good (75-100%) Estimated Nutritional Goals Calories/Kcals/Kg IBW 154lb/70kg Kcals Calculated 1750-2100kcal (25-30kcal/kg) Protein Calculated 70g (1g/kg) Fluid: ml 1750-2100ml (1ml/kcal) Nutritional Problem 1. Problem Problem No nutritional problem at this time. Intervention/Recommendation Comments 1. Continue with current diet order. Avg PO intake is adequate. 2. Remove Boost BID, pt with good appetite, meeting nutritional needs on meals. Expected Outcomes/Goals Expected Outcomes/Goals 1. PO intake continue to meet at least 75% of estimated nutritional needs.
[2016-12-01] MEDS: INSULIN ASPART SLIDING SCALE 100 UNITS/ML UNIT SUBQ SCH ×4 (06:42→20:01)
[2016-12-01] MEDS: Docusate Sodium/Senna Tab PO SCH ×2 (08:44→17:12)
--- NOTE | 2016-12-01 10:46 | Psych Progress Note ---
Anu Psych Progress Note - Intro Date of Progress Note: 12/01/16 - Assessment Assessment: Depressed. and isolative. - Vitals, I&O Vitals: Vital Signs - 24 hr 11/30/16 12/01/16 21:10 07:13 Temp 97.6 F 98 F HR 81 72 RR 18 20 BP 128/79 113/73 O2 Sat % 97 97 I&O: Intake & Output 11/29/16 11/30/16 12/01/16 12/02/16 06:59 06:59 06:59 06:59 Intake Total 1200 800 Balance 1200 800 Weight (lbs) 87.861 kg - ROS Psychological ROS: Report: Anxiety, Depression, Sleep Disturbances, Suicidal Ideation Neurological: Report: No Significant, Confusion - Objective Psych General Appearance: Report: No acute distress, Disheveled Psych Behavior: Report: Alert, Calm, Pacing Psych Speech: Report: Normal in Rate and amount, Soft Psych Mood: Report: Anxious, Depressed Psych Affect: Report: Approp. content of speech, Anxious, Constricted Psych Thought Process: Report: Paranoid Psych Cognition: Report: Confused, Unchanged from previous exam Psych Insight: Report: Impaired Psych Judgement: Report: Impaired - Plan Plan: Continue Abilify and add Prozac and follow up with supportive tx.patient is awaiting placement. - Review of Relevant Data Review of Relevant Data: I have reviewed the following items and time gaston (where applicable) has been applied. Psych Data Reviewed: Meds - Medications Current Medications: Current Medications Acetaminophen (Tylenol) 650 mg PO Q8HR PRN PRN Reason: mild pain Stop: 01/23/17 00:13 Last Admin: 11/28/16 20:59 Dose: 650 mg Aripiprazole (Abilify) 2 mg PO DAILY JULISSA PRN Reason: Protocol Stop: 01/26/17 08:59 Last Admin: 12/01/16 08:44 Dose: 2 mg Fluoxetine HCl (Prozac) 20 mg PO DAILY JULISSA PRN Reason: Protocol Stop: 01/27/17 08:59 Last Admin: 12/01/16 08:44 Dose: 20 mg Insulin Aspart (Novolog Insulin Sliding Scale) 0 units SUBQ ACHS JULISSA PRN Reason: Protocol Stop: 01/23/17 07:29 Last Admin: 12/01/16 06:42 Dose: Not Given Lorazepam (Ativan) 1 mg PO Q6H PRN; Protocol PRN Reason: Agitation Stop: 01/22/17 23:44 Last Admin: 11/28/16 21:00 Dose: 1 mg Mirtazapine (Remeron) 15 mg PO HS JULISSA PRN Reason: Protocol Stop: 01/23/17 20:59 Last Admin: 11/30/16 20:48 Dose: 15 mg Rivaroxaban (Xarelto) 20 mg PO QDPC JULISSA Stop: 01/24/17 08:29 Last Admin: 12/01/16 08:44 Dose: 20 mg Sennosides (Senna Plus 50 Mg-8.6 Mg) 1 tab PO BID JULISSA Stop: 01/23/17 08:59 Last Admin: 12/01/16 08:44 Dose: 1 tab Zolpidem Tartrate (Ambien) 5 mg PO HS PRN PRN Reason: Insomnia Stop: 01/22/17 23:44 Last Admin: 11/30/16 20:48 Dose: 5 mg
[2016-12-02] MEDS: INSULIN ASPART SLIDING SCALE 100 UNITS/ML UNIT SUBQ SCH ×4 (06:29→21:15)
[2016-12-02] MEDS: Docusate Sodium/Senna Tab PO SCH ×2 (08:30→16:46)
--- NOTE | 2016-12-02 09:41 | Psych Progress Note ---
Anu Psych Progress Note - Intro Date of Progress Note: 12/02/16 - Assessment Assessment: Depressed. and isolative. - Vitals, I&O Vitals: Vital Signs - 24 hr 12/01/16 12/01/16 12/01/16 14:00 16:16 20:00 Temp 98.6 F HR 55 HR [Radial] 72 72 RR 20 20 20 BP 112/64 O2 Sat % 96 12/02/16 06:36 Temp 97.8 F HR 67 HR [Radial] RR 20 BP 113/68 O2 Sat % 97 I&O: Intake & Output 11/30/16 12/01/16 12/02/16 12/03/16 06:59 06:59 06:59 06:59 Intake Total 800 1920 Balance 800 1920 - ROS Psychological ROS: Report: Anxiety, Depression, Sleep Disturbances, Suicidal Ideation Neurological: Report: No Significant, Confusion - Objective Psych General Appearance: Report: No acute distress, Disheveled Psych Behavior: Report: Alert, Calm, Pacing Psych Speech: Report: Normal in Rate and amount, Soft Psych Mood: Report: Anxious, Depressed Psych Affect: Report: Approp. content of speech, Anxious, Constricted Psych Thought Process: Report: Paranoid Psych Cognition: Report: Confused, Unchanged from previous exam Psych Insight: Report: Impaired Psych Judgement: Report: Impaired - Plan Plan: Continue Abilify and add Prozac and follow up with supportive tx.patient is awaiting placement. - Review of Relevant Data Review of Relevant Data: I have reviewed the following items and time gaston (where applicable) has been applied. - Medications Current Medications: Current Medications Acetaminophen (Tylenol) 650 mg PO Q8HR PRN PRN Reason: mild pain Stop: 01/23/17 00:13 Last Admin: 11/28/16 20:59 Dose: 650 mg Aripiprazole (Abilify) 2 mg PO DAILY JULISSA PRN Reason: Protocol Stop: 01/26/17 08:59 Last Admin: 12/02/16 08:29 Dose: 2 mg Fluoxetine HCl (Prozac) 20 mg PO DAILY JULISSA PRN Reason: Protocol Stop: 01/27/17 08:59 Last Admin: 12/02/16 08:30 Dose: 20 mg Insulin Aspart (Novolog Insulin Sliding Scale) 0 units SUBQ ACHS JULISSA PRN Reason: Protocol Stop: 01/23/17 07:29 Last Admin: 12/02/16 06:29 Dose: Not Given Lorazepam (Ativan) 1 mg PO Q6H PRN; Protocol PRN Reason: Agitation Stop: 01/22/17 23:44 Last Admin: 12/01/16 21:18 Dose: 1 mg Mirtazapine (Remeron) 15 mg PO HS [facility] PRN Reason: Protocol Stop: 01/23/17 20:59 Last Admin: 12/01/16 20:01 Dose: 15 mg Rivaroxaban (Xarelto) 20 mg PO QDPC [facility] Stop: 01/24/17 08:29 Last Admin: 12/02/16 08:29 Dose: 20 mg Sennosides (Senna Plus 50 Mg-8.6 Mg) 1 tab PO BID [facility] Stop: 01/23/17 08:59 Last Admin: 12/02/16 08:30 Dose: 1 tab
--- NOTE | 2016-12-02 12:17 | General Progress Note ---
Subjective - Review of Systems Service Date: 12/02/16 Subjective: .. No reports of bleeding Objective - Results Result Diagrams: 11/24/16 22:24 11/24/16 22:24 Recent Labs: Laboratory Last Values WBC 10.1 Th/cmm (4.8-10.8) 11/24/16 22:24 RBC 5.10 Mil/cmm (3.80-5.80) 11/24/16 22:24 Hgb 15.5 gm/dL (12.6-17.4) 11/24/16 22:24 Hct 46.4 % (39.0-49.0) 11/24/16 22:24 MCV 90.8 fl (80-99) 11/24/16 22:24 MCH 30.3 pg (27.0-31.0) 11/24/16 22:24 MCHC Differential 33.4 pg (28.0-36.0) 11/24/16 22:24 RDW 13.8 % (11.5-20.0) 11/24/16 22:24 Plt Count 287 Th/cmm (150-400) 11/24/16 22:24 MPV 7.9 fl 11/24/16 22:24 Neutrophils % 60.9 % (40.0-80.0) 11/24/16 22:24 Lymphocytes % 28.3 % (20.0-50.0) 11/24/16 22:24 Monocytes % 7.5 % (2.0-10.0) 11/24/16 22:24 Eosinophils % 1.2 % (0.0-5.0) 11/24/16 22:24 Basophils % 2.1 % (0.0-2.0) H 11/24/16 22:24 D-Dimer < 100 ng/mL (100-400) L 11/26/16 14:37 Sodium 130 mEq/L (136-145) L 11/24/16 22:24 Potassium 4.5 mEq/L (3.5-5.1) 11/24/16 22:24 Chloride 102 mEq/L (98-107) 11/24/16 22:24 Carbon Dioxide 23.4 mEq/L (21.0-31.0) 11/24/16 22:24 Anion Gap 9.1 (7.0-16.0) 11/24/16 22:24 BUN 22 mg/dL (7-25) 11/24/16 22:24 Creatinine 0.9 mg/dL (0.7-1.3) 11/24/16 22:24 Est GFR ( Amer) > 60.0 ml/min (>90) 11/24/16 22:24 Est GFR (Non-Af Amer) > 60.0 ml/min 11/24/16 22:24 BUN/Creatinine Ratio 24.4 11/24/16 22:24 Glucose 100 mg/dL (70-105) 11/24/16 22:24 POC Glucose 90 MG/DL (70 - 105) 12/02/16 06:15 Calcium 9.5 mg/dL (8.6-10.3) 11/24/16 22:24 - Physical Exam Vitals and I&O: Vital Signs Temp 97.8 F 12/02/16 06:36 Pulse 67 12/02/16 06:36 Resp 20 12/02/16 06:36 BP 113/68 12/02/16 06:36 Pulse Ox 97 12/02/16 06:36 Intake & Output 12/01/16 12/02/16 12/02/16 18:59 06:59 18:59 Intake Total 1800 120 Balance 1800 120 Intake: Oral 1800 120 Other: # Voids 4 3 # Bowel Movements 0 Active Medications: Current Medications Acetaminophen (Tylenol) 650 mg PO Q8HR PRN PRN Reason: mild pain Stop: 01/23/17 00:13 Last Admin: 11/28/16 20:59 Dose: 650 mg Aripiprazole (Abilify) 2 mg PO DAILY JULISSA PRN Reason: Protocol Stop: 01/26/17 08:59 Last Admin: 12/02/16 08:29 Dose: 2 mg Fluoxetine HCl (Prozac) 20 mg PO DAILY JULISSA PRN Reason: Protocol Stop: 01/27/17 08:59 Last Admin: 12/02/16 08:30 Dose: 20 mg Insulin Aspart (Novolog Insulin Sliding Scale) 0 units SUBQ ACHS JULISSA PRN Reason: Protocol Stop: 01/23/17 07:29 Last Admin: 12/02/16 12:00 Dose: Not Given Lorazepam (Ativan) 1 mg PO Q6H PRN; Protocol PRN Reason: Agitation Stop: 01/22/17 23:44 Last Admin: 12/01/16 21:18 Dose: 1 mg Mirtazapine (Remeron) 15 mg PO HS [facility] PRN Reason: Protocol Stop: 01/23/17 20:59 Last Admin: 12/01/16 20:01 Dose: 15 mg Rivaroxaban (Xarelto) 20 mg PO QDPC [facility] Stop: 01/24/17 08:29 Last Admin: 12/02/16 08:29 Dose: 20 mg Sennosides (Senna Plus 50 Mg-8.6 Mg) 1 tab PO BID [facility] Stop: 01/23/17 08:59 Last Admin: 12/02/16 08:30 Dose: 1 tab Cardiovascular: Regular rate Lungs: Clear to auscultation Assessment/Plan - Assessment Assessment: * Pulmonary embolism * Depression Continue xarelto same dose follow cbc Nutritional Asmnt/Malnutr-PDOC - Dietary Evaluation Malnutrition Findings (Please click <Entered> for more info): Nutritional Asmnt/Malnutrition Start: 11/28/16 09: 29 Text: Status: Complete Freq: Document 11/28/16 09:29 GSUN (Rec: 11/28/16 09:48 [email or web address] [email or web address]) Nutritional Asmnt/Malnutrition Patient General Information Nutritional Screening Moderate Risk Screening Diagnosis Pulmonary embolism, HTN, mental health disorder Pertinent Medical Hx/Surgical Hx HTN, mental health disorder Subjective Information 66 year old male. Pt was resting in bed, appeared guarded, asked RD to leave after several questions, limited interview due to this. Pt denied allergies, chewing/ swallowing difficulties, any nutritional questions at this time. No wasting noted. Avg PO intake 75-100% since adm, meeting nutritional needs. Current Diet Order/ Nutrition Support Regular, Boost BID Pertinent Medications Novolog, Remeron, Senna Plus Pertinent Labs Reviewed. POC glucose 86-118 since adm Nutritional Hx/Data Height 1.73 m Height (Calculated Centimeters) 172.7 Current Weight (lbs) 87.861 kg Weight (Calculated Kilograms) 87.9 Weight (Calculated Grams) 94397.8 [place] Body Weight 154 Weight Status Overweight GI Symptoms Skin Integrity/Comment: Mukul 20. Skin intact. Current %PO Good (75-100%) Estimated Nutritional Goals Calories/Kcals/Kg IBW 154lb/70kg Kcals Calculated 1750-2100kcal (25-30kcal/kg) Protein Calculated 70g (1g/kg) Fluid: ml 1750-2100ml (1ml/kcal) Nutritional Problem 1. Problem Problem No nutritional problem at this time. Intervention/Recommendation Comments 1. Continue with current diet order. Avg PO intake is adequate. 2. Remove Boost BID, pt with good appetite, meeting nutritional needs on meals. Expected Outcomes/Goals Expected Outcomes/Goals 1. PO intake continue to meet at least 75% of estimated nutritional needs.
[2016-12-03] MEDS: INSULIN ASPART SLIDING SCALE 100 UNITS/ML UNIT SUBQ SCH ×2 (06:31→12:30)
[2016-12-03] MEDS: Docusate Sodium/Senna Tab PO SCH (08:16)
[2016-12-03 08:53] LABS: % BASOPHILS 0.3 % (0.0-2.0); % EOSINOPHILS 1.6 % (0.0-5.0); % MONOCYTES 4.8 % (2.0-10.0); % NEUTROPHILS 52.3 % (40.0-80.0); HEMATOCRIT 43.1 % (39.0-49.0); HEMOGLOBIN 14.4 gm/dL (12.6-17.4); MEAN CORPUSCULAR HEMOGLOBIN 30.4 pg (27.0-31.0); MEAN CORPUSCULAR HGB CONC 33.4 pg (28.0-36.0); MEAN PLATELET VOLUME 8.3 fl; NEUTROPHILE ABSOLUTE 4.3 Th/cmm (1.8-8.0); PLATELET COUNT 270 Th/cmm (150-400); RED BLOOD COUNT 4.74 Mil/cmm (3.80-5.80); RED CELL DISTRIBUTION WIDTH 13.8 % (11.5-20.0); WHITE BLOOD COUNT 8.2 Th/cmm (4.8-10.8)
--- NOTE | 2016-12-03 17:14 | General Progress Note ---
Subjective - Review of Systems Service Date: 12/03/16 Subjective: .. No reports of bleeding Objective - Results Result Diagrams: 12/03/16 08:16 11/24/16 22:24 Recent Labs: Laboratory Last Values WBC 8.2 Th/cmm (4.8-10.8) 12/03/16 08:16 RBC 4.74 Mil/cmm (3.80-5.80) 12/03/16 08:16 Hgb 14.4 gm/dL (12.6-17.4) 12/03/16 08:16 Hct 43.1 % (39.0-49.0) 12/03/16 08:16 MCV 91.0 fl (80-99) 12/03/16 08:16 MCH 30.4 pg (27.0-31.0) 12/03/16 08:16 MCHC Differential 33.4 pg (28.0-36.0) 12/03/16 08:16 RDW 13.8 % (11.5-20.0) 12/03/16 08:16 Plt Count 270 Th/cmm (150-400) 12/03/16 08:16 MPV 8.3 fl 12/03/16 08:16 Neutrophils % 52.3 % (40.0-80.0) 12/03/16 08:16 Lymphocytes % 41.0 % (20.0-50.0) 12/03/16 08:16 Monocytes % 4.8 % (2.0-10.0) 12/03/16 08:16 Eosinophils % 1.6 % (0.0-5.0) 12/03/16 08:16 Basophils % 0.3 % (0.0-2.0) 12/03/16 08:16 D-Dimer < 100 ng/mL (100-400) L 11/26/16 14:37 Sodium 130 mEq/L (136-145) L 11/24/16 22:24 Potassium 4.5 mEq/L (3.5-5.1) 11/24/16 22:24 Chloride 102 mEq/L (98-107) 11/24/16 22:24 Carbon Dioxide 23.4 mEq/L (21.0-31.0) 11/24/16 22:24 Anion Gap 9.1 (7.0-16.0) 11/24/16 22:24 BUN 22 mg/dL (7-25) 11/24/16 22:24 Creatinine 0.9 mg/dL (0.7-1.3) 11/24/16 22:24 Est GFR ( Amer) > 60.0 ml/min (>90) 11/24/16 22:24 Est GFR (Non-Af Amer) > 60.0 ml/min 11/24/16 22:24 BUN/Creatinine Ratio 24.4 11/24/16 22:24 Glucose 100 mg/dL (70-105) 11/24/16 22:24 POC Glucose 84 MG/DL (70 - 105) 12/03/16 05:45 Calcium 9.5 mg/dL (8.6-10.3) 11/24/16 22:24 - Physical Exam Vitals and I&O: Vital Signs Temp 97.9 F 12/03/16 16:15 Pulse 63 12/03/16 16:15 Resp 18 12/03/16 16:15 BP 109/63 12/03/16 16:15 Pulse Ox 95 12/03/16 16:15 Intake & Output 12/02/16 12/03/16 12/03/16 18:59 06:59 18:59 Intake Total 950 120 Balance 950 120 Intake: Oral 950 120 Other: # Voids 4 2 # Bowel Movements 1 0 Active Medications: Current Medications Acetaminophen (Tylenol) 650 mg PO Q8HR PRN PRN Reason: mild pain Stop: 01/23/17 00:13 Last Admin: 11/28/16 20:59 Dose: 650 mg Aripiprazole (Abilify) 2 mg PO DAILY JULISSA PRN Reason: Protocol Stop: 01/26/17 08:59 Last Admin: 12/03/16 08:15 Dose: 2 mg Fluoxetine HCl (Prozac) 20 mg PO DAILY JULISSA PRN Reason: Protocol Stop: 01/27/17 08:59 Last Admin: 12/03/16 08:15 Dose: 20 mg Insulin Aspart (Novolog Insulin Sliding Scale) 0 units SUBQ ACHS JULISSA PRN Reason: Protocol Stop: 01/23/17 07:29 Last Admin: 12/03/16 12:30 Dose: Not Given Lorazepam (Ativan) 1 mg PO Q6H PRN; Protocol PRN Reason: Agitation Stop: 01/22/17 23:44 Last Admin: 12/02/16 21:14 Dose: 1 mg Mirtazapine (Remeron) 15 mg PO HS JULISSA PRN Reason: Protocol Stop: 01/23/17 20:59 Last Admin: 12/02/16 21:14 Dose: 15 mg Rivaroxaban (Xarelto) 20 mg PO QDPC [facility] Stop: 02/01/17 14:29 Sennosides (Senna Plus 50 Mg-8.6 Mg) 1 tab PO BID JULISSA Stop: 01/23/17 08:59 Last Admin: 12/03/16 08:16 Dose: 1 tab Cardiovascular: Regular rate Lungs: Clear to auscultation Assessment/Plan - Assessment Assessment: * Pulmonary embolism * Depression Continue xarelto same dose Nutritional Asmnt/Malnutr-PDOC - Dietary Evaluation Malnutrition Findings (Please click <Entered> for more info): Nutritional Asmnt/Malnutrition Start: 11/28/16 09: 29 Text: Status: Complete Freq: Document 11/28/16 09:29 GSUN (Rec: 11/28/16 09:48 [email or web address] [email or web address]) Nutritional Asmnt/Malnutrition Patient General Information Nutritional Screening Moderate Risk Screening Diagnosis Pulmonary embolism, HTN, mental health disorder Pertinent Medical Hx/Surgical Hx HTN, mental health disorder Subjective Information 66 year old male. Pt was resting in bed, appeared guarded, asked RD to leave after several questions, limited interview due to this. Pt denied allergies, chewing/ swallowing difficulties, any nutritional questions at this time. No wasting noted. Avg PO intake 75-100% since adm, meeting nutritional needs. Current Diet Order/ Nutrition Support Regular, Boost BID Pertinent Medications Novolog, Remeron, Senna Plus Pertinent Labs Reviewed. POC glucose 86-118 since adm Nutritional Hx/Data Height 1.73 m Height (Calculated Centimeters) 172.7 Current Weight (lbs) 87.861 kg Weight (Calculated Kilograms) 87.9 Weight (Calculated Grams) 89505.8 [place] Body Weight 154 Weight Status Overweight GI Symptoms Skin Integrity/Comment: Mukul 20. Skin intact. Current %PO Good (75-100%) Estimated Nutritional Goals Calories/Kcals/Kg IBW 154lb/70kg Kcals Calculated 1750-2100kcal (25-30kcal/kg) Protein Calculated 70g (1g/kg) Fluid: ml 1750-2100ml (1ml/kcal) Nutritional Problem 1. Problem Problem No nutritional problem at this time. Intervention/Recommendation Comments 1. Continue with current diet order. Avg PO intake is adequate. 2. Remove Boost BID, pt with good appetite, meeting nutritional needs on meals. Expected Outcomes/Goals Expected Outcomes/Goals 1. PO intake continue to meet at least 75% of estimated nutritional needs.
--- NOTE | 2016-12-03 18:43 | Psych Discharge Summary ---
Psych Discharge Summary - Discharge Summary Discharge Date: 12/03/16 Chief Complaint: I am doing okay today. Admitting Diagnosis: Major depressive Disorder with psychotic features. History of Present Illness: Pl. refer to the HPI done in psych eval. Hospital Course and Response to Treatment: Has been closely monitored and continued on anti depressants and Abilify.He started to stabilize.he has been treated with prozac, remeron and Zyprexa along with Abilify.He did not display any suicidal behavior. Lab Results Reviewed: Yes General Appearance: No acute distress Behavior: Alert, Calm Speech: Normal in Rate and amount Mood: Anxious, Depressed Affect: Approp. content of speech Thought Process and Content: Paranoid Cognition: Grossly Intact Intelegence: Average Insight: Fair Judgement: Fair Discharge Diagnosis: Donovan I: Donovan II: Donovan III: Condition at Discharge: Stable Disposition: Discharge/Transfered to SNF Medications upon Discharge: Discontinued Medications Acetaminophen (Tylenol) 650 mg PO Q8HR PRN PRN Reason: mild pain Stop: 01/23/17 00:13 Last Admin: 11/28/16 20:59 Dose: 650 mg Aripiprazole (Abilify) 2 mg PO DAILY JULISSA PRN Reason: Protocol Stop: 01/26/17 08:59 Last Admin: 12/03/16 08:15 Dose: 2 mg Fluoxetine HCl (Prozac) 40 mg PO DAILY ONE PRN Reason: Protocol Stop: 11/24/16 00:43 Fluoxetine HCl (Prozac) 20 mg PO DAILY JULISSA PRN Reason: Protocol Stop: 01/27/17 08:59 Last Admin: 12/03/16 08:15 Dose: 20 mg Insulin Aspart (Novolog Insulin Sliding Scale) 0 units SUBQ ACHS JULISSA PRN Reason: Protocol Stop: 01/23/17 07:29 Last Admin: 12/03/16 12:30 Dose: Not Given Lorazepam (Ativan) 1 mg PO Q6H PRN; Protocol PRN Reason: Anxiety/Agitation Stop: 01/22/17 23:44 Lorazepam (Ativan) 1 mg PO Q6H PRN; Protocol PRN Reason: Agitation Stop: 01/22/17 23:44 Lorazepam (Ativan) 1 mg PO Q6H PRN; Protocol PRN Reason: Agitation Stop: 01/22/17 23:44 Last Admin: 12/02/16 21:14 Dose: 1 mg Mirtazapine (Remeron) 15 mg PO HS JULISSA PRN Reason: Protocol Stop: 01/23/17 20:59 Last Admin: 12/02/16 21:14 Dose: 15 mg Miscellaneous (Apixaban [Eliquis]) 5 mg PO BID [facility] Stop: 01/23/17 08:59 Miscellaneous (Fluoxetine Hcl [Prozac]) 40 mg PO DAILY JULISSA Stop: 01/23/17 08:59 Olanzapine (Zyprexa) 5 mg PO HS JULISSA PRN Reason: Protocol Stop: 01/23/17 20:59 Last Admin: 11/25/16 21:18 Dose: 5 mg Rivaroxaban (Xarelto) 20 mg PO QDPC [facility] Stop: 01/24/17 08:29 Last Admin: 12/02/16 08:29 Dose: 20 mg Rivaroxaban (Xarelto) 20 mg PO 1730 [facility] Stop: 11/24/16 19:30 Last Admin: 11/24/16 18:18 Dose: 20 mg Rivaroxaban (Xarelto) 20 mg PO QDPC [facility] Stop: 02/01/17 14:29 Sennosides (Senna Plus 50 Mg-8.6 Mg) 1 tab PO BID [facility] Stop: 01/23/17 08:59 Last Admin: 12/03/16 08:16 Dose: 1 tab Zolpidem Tartrate (Ambien) 5 mg PO HS PRN PRN Reason: Insomnia Stop: 01/22/17 23:44 Last Admin: 11/30/16 20:48 Dose: 5 mg Prognosis At Time of Discharge: Fair with treatment
== END 2016-12-03 15:55 | DRG 885 ==
LOC: GERO 23:15
PROVIDERS: ADMIT Psychiatry & Neurology Psychiatry; ATTEND Psychiatry & Neurology Psychiatry
DX: F33.3 Major depressive disorder, recurrent, severe with psychotic symptoms (principal); I26.99 Other pulmonary embolism without acute cor pulmonale; I10 Essential (primary) hypertension; F29 Unspecified psychosis not due to a substance or known physiological condition; F41.9 Anxiety disorder, unspecified; Z79.4 Long term (current) use of insulin
CPT/HCPCS: 36415-UA; 80048-TC; 82948-90; 85025-TC; 85379-TC; J1815; J7051; Z7610